=== PATIENT | female | born 1970 | race Caucasian/White ===

== ENCOUNTER 2021-11-07 21:05 | Emergency (ER) | payer OTHER, BC ==
[2021-11-07] MEDS ORDERED: Lidocaine 1% PF 5 ML VIAL ONE (21:41)
[2021-11-07] MEDS ORDERED: Boostrix 0.5 ML (Tdap) VIAL ONE (21:47)
== END 2021-11-07 22:35 | disposition home or self-care (01) ==
LOC: BURERS 21:05
DX: S61.210A Laceration without foreign body of right index finger without damage to nail, initial encounter (principal); Y29.XXXA Contact with blunt object, undetermined intent, initial encounter; Z23 Encounter for immunization
CPT/HCPCS: 12001; 90471; 90715

== ENCOUNTER 2022-01-14 19:15 | Emergency (ER) | payer BC | END 2022-01-14 19:51 | disposition home or self-care (01) | LOC: BURERS 19:15 | DX: S70.361A Insect bite (nonvenomous), right thigh, initial encounter (principal); W57.XXXA Bitten or stung by nonvenomous insect and other nonvenomous arthropods, initial encounter | CPT/HCPCS: 99282 ==